=== PATIENT | female | born 1955 | race African-American/Black ===

== ENCOUNTER 2017-07-31 10:39 | Emergency (ER) | payer OTHER ==
[~2017-07-31] VITALS: Ht 149.9 cm; Wt 38.6 kg
--- NOTE | ~2017-07-31 | EKG ---
[address] [address] ELECTROCARDIOGRAM REPORT Name: HERACLIO REYNOLDS Room #: [facility]ITALAd[id number] Admission: 07/31/17 Attend Phys: Discharge: 07/31/17 Date of : 51 Report #: [id number] THIS REPORT FOR: //name// [facility] ED Test Date: 2017-07-31 Test Time: 11:29:32 Pat Name: HERACLIO REYNOLDS Department: Room: Gender: F Master [employer]: : 1955 Requested By: Campbell Flores Order Number: [id number] MD: Harsh Casiano Measurements Intervals [place] Rate: 71 P: 45 [place]: 154 QRS: 12 QRSD: 91 T: 47 QT: 400 QTc: 435 Interpretive Statements Sinus rhythm Left ventricular hypertrophy Baseline wander in lead(s) I Compared to ECG 03/25/2014 12:14:41 No significant changes Electronically Signed On 07-31-2017 15:34:20 CDT by Harsh Casiano [email or web address] <ELECTRONICALLY SIGNED> By: Harsh Casiano MD 07/31/17 1534 [id number] Harsh Casiano MD /[id number]
[~2017-07-31 10:39] MED LIST: ACID CONTROL20 MG PO; ADVAIR 250-501 EACH INH; ADVAIR HFA 230M12 GM IH; ADVAIR HFA115 MCG/21 INH; ALEVE220 M1 PO; ALEVE220 MG PO; CLONIDINE0.1 PO; CLOPIDOGREL75 MG PO; CREON 10 CAPSUL1 CA1 PO; HYDROCHLOROTHIA25 M1 PO; HYDROCODON-ACE1 EACH PO; LACTULOSE10 GM/152 PO; LISINOPRIL10 MG PO; LISINOPRIL20 MG PO; NORCO 5-325 TA1 EACH PO; SEROQUEL 12.512.5 MG PO; TOPROL XL50 MG PO; TRAMADOL 50 MG50 MG PO; TRINATE TABLET1 TAB PO; TYLENOL325 MG PO; VITAMIN B-1100 M1 PO; ZPAK PO
[2017-07-31 12:00] LABS: HEMATOCRIT 37.2 % (37.0-47.0); HEMOGLOBIN 12.3 gm/dL (12.0-15.0); MCH 30.7 pg (26.0-34.0); MCHC 33.2 g/dL (28.0-37.0); MCV 92.7 fL (80.0-100.0); RBC 4.02 mil/uL (4.20-5.00); RDW 14.9 % (10.5-14.5); WBC 6.2 thou/uL (4.0-11.0)
[2017-07-31 12:40] LABS: ANION GAP 8 mmol/L (7-16); BUN 11 mg/dL (7-18); CALCIUM 9.2 mg/dL (8.5-10.1); CHLORIDE 112 mmol/L (98-107); CO2 22 mmol/L (21-32); CREATININE 0.7 mg/dL (0.6-1.0); GLUCOSE 84 mg/dL (74-106); POTASSIUM 4.1 mmol/L (3.5-5.1); SODIUM 142 mmol/L (136-145)
[2017-07-31 12:49] LABS: TROPONIN-I < 0.04 ng/mL (<0.06)
[2017-07-31] MEDS ORDERED: NORVASC5 MG PO (13:06)
[2017-07-31] MEDS ORDERED: PENICILLIN V P500 MG PO (13:06)
== END 2017-07-31 13:30 | disposition home or self-care (01) ==
LOC: ER 10:39
PROVIDERS: Emergency Medicine
DX: I10 Essential (primary) hypertension (principal); J44.9 Chronic obstructive pulmonary disease, unspecified; F17.210 Nicotine dependence, cigarettes, uncomplicated; F10.99 Alcohol use, unspecified with unspecified alcohol-induced disorder; Z88.6 Allergy status to analgesic agent; Z91.041 Radiographic dye allergy status